=== PATIENT | female | born 1950 | race Caucasian/White ===

== ENCOUNTER → 2016-12-04 | Outpatient (CLI) | payer OTHER ==
[~2016-12-04] MED LIST: (NONE)300 MCG PO; BACLOFEN10 MG PO; CALCIUM 500 +1 EAC5 PO; EC-NAPROSYN500 MG PO; ESCITALOPRAM OX10 MG PO; LEVOTHYROXINE75 MC1 PO; NATURAL VITA400 UNI3 PO; OMEPRAZOLE20 M1 PO; PERCOCET5/325 PO; PRENATA CHEWAB1 EAC1 PO; TOPROL XL50 MG PO; TRIAMTERENE-HC1 EACH PO; XARELTO10 MG PO
--- NOTE | ~2016-12-04 | EKG ---
PATIENT: CECILIO FARFAN UNIT #: [id number] Ventricular Rate: 56 BPM Atrial Rate: 56 BPM P-R Interval: 166 ms QRS Duration: 84 ms Q-T Interval: 442 ms QTC Calculation(Bezet): 426 ms P Zanoni: 26 degrees Calculated R Zanoni: 13 degrees Calculated T Zanoni: 3 degrees Diagnosis Line: Sinus bradycardia Diagnosis Line: Nonspecific T wave abnormality Diagnosis Line: Abnormal ECG Diagnosis Line: No previous ECGs available Diagnosis Line: Confirmed by ENRIQUETA RODRÍGUEZ MD ([id number]) on Diagnosis Line: 12/05/2016 8:47:31 AM INTERPRETING MD: MARCOS GU
[2016-12-04 12:42] LABS: BUN/CREATININE RATIO 25.55; CALCIUM SERUM 9.5 mg/dL (8.4-10.2); CREATININE SERUM 0.9 mg/dL (0.6-1.4); GLOM FILT RATE Estimated 66.7 mL/min (>60); POTASSIUM 4.3 mmol/L (3.5-5.1)
== END | disposition home or self-care (01) ==
LOC: CAMB 10:27
PROVIDERS: Orthopaedic Surgery
DX: Z01.818 Encounter for other preprocedural examination (principal); M19.071 Primary osteoarthritis, right ankle and foot
CPT/HCPCS: 36415; 80048; 93005

== ENCOUNTER 2016-12-18 09:20 | Inpatient (IN) | payer OTHER ==
--- NOTE | ~2016-12-18 | CR72 ---
[facility] A Service of [facility] & [facility] RADIOLOGY TEXT RESULTS PATIENT: CECILIO FARFAN LOCATION: C4B 450-01 : 50 UNIT #: [id number] AGE: [address]: Tori Munson MD SEX: F ORDER DR: [id number] [facility] [address] [place], [place] [address] [id number] I MR#: [id number] Acc #: [id number] NAME: CECILIO FARFAN : 1950 SEX: F STUDY DATE/TIME: 12/19/2016 UNIT: C4B ROOM: 450 STUDY DESCRIPTION: CR Chest Single View Portable Attending Physician: Rudolph Munson M.D. Referring Physician: Rudolph Munson M.D. Ordering Physician: Ambar Lowry M.D. Primary Care Physician: Carl Roy M.D. MEDICAL IMAGING REPORT This report is preliminary unless electronic signature is present EXAM Chest portable 12/19/2016 1328 hours. HISTORY 66-year-old woman with cough, status post ankle surgery yesterday. Hyponatremia. COMPARISON None FINDINGS Single portable view is lordotic in positioning. Allowing for this, the heart size is normal. The aorta is mildly tortuous. There is a small hiatal hernia. The lungs are clear, and there are no effusions. IMPRESSION Film is limited by the lordotic positioning. The lungs are clear, and there are no effusions. Small hiatal hernia seen. Dictated by... Sommer Gordon M.D. THIS IS AN ELECTRONICALLY VERIFIED REPORT Sommer Gordon M.D. at 12/19/2016 5:50 PM DARELL/ramon TD: 12/19/2016 15:53 JOB #: [id number] MEDICAL IMAGING REPORT Page 1 of 1 COPY
--- NOTE | ~2016-12-18 | OR ---
Unit #: [id number] #: [id number] Patient: CECILIO FARFAN [id number] [address] [place], [place] [address] [id number] I MR#: [id number] NAME: CECILIO FARFAN ROOM: [facility] Date of Procedure: 12/18/2016 Admission Date: 12/18/2016 Surgeon: Rudolph Munson M.D. : 1950 Attending Physician: Rudolph Munson M.D. Referring Physician: Rudolph Munson M.D. Primary Care Physician: Carl Roy M.D. OPERATIVE REPORT PREOPERATIVE DIAGNOSES 1. Right ankle arthritis. 2. Right ankle malunion. 3. Right ankle retained hardware. POSTOPERATIVE DIAGNOSES 1. Right ankle posttraumatic arthritis. 2. Right ankle malunion. 3. Right syndesmotic instability. 4. Right ankle retained hardware. PROCEDURES PERFORMED 1. Right ankle fusion (64339). 2. Right tibiofibular syndesmotic fusion (67170). 3. Right medial cuneiform dorsal opening wedge osteotomy (Cotton procedure) (30125). 4. Right ankle hardware removal (78154). BROADCAST OPERATIONS DIRECTOR 1. MD Lucie. 2. SUBHASH Yousif. ANESTHESIA Popliteal saphenous block and general. INDICATIONS FOR SURGERY The patient is a 66-year-old female, who sustained a right ankle trimalleolar fracture, which was treated in [place] with open reduction and internal fixation 1 year ago. The patient now has a malunion of the ankle with a medial malleolar nonunion and widening of the syndesmosis. She has marked ankle valgus measuring 40 degrees with forefoot abduction. The patient has posttraumatic arthritis of the ankle. She has failed bracing and is now to undergo ankle fusion with removal of hardware. DESCRIPTION OF PROCEDURE The patient was taken to the operating room following the right popliteal saphenous block. She was placed in supine position. General anesthetic was induced. The right ankle and leg were identified as the correct operative location. The right foot was then prepped and draped in the usual sterile fashion. The leg was exsanguinated and the thigh tourniquet inflated to 300 mmHg. A lateral longitudinal incision was made over the Unit #: [id number] #: [id number] Patient: CECILIO FARFAN fibula, measuring 10 cm through the old longitudinal scar. The subcutaneous tissue was divided. The fibular plate and screws were identified and removed with a hex head and star screwdrivers. The plate was removed. The fibula was exposed subperiosteally. The microsagittal saw was used to cut the fibula 8 cm proximal to the tibiotalar joint. The fibula was then retracted distally, and the distal tibia was exposed subperiosteally. The ankle joint was distracted. The power osteotome, curved curettes, and rongeurs were utilized to remove the articular cartilage from both sides of the tibiotalar joint. A 5 cm anteromedial longitudinal incision was made over the ankle joint, subcutaneous tissue was divided, dissection proceeded medial to the anterior tibial tendon. The joint was opened and the articular cartilage on the medial half of the joint was removed with the power osteotome and rongeurs. All the scar tissue in the widened tibiotalar joint medially was removed. There was a malunion of the medial malleolus, which had healed laterally. Therefore, the microsagittal saw was used to cut the medial malleolus and the medial malleolus was eventually removed in a piecemeal fashion to be utilized for bone graft later in the case. The underlying subchondral bone was then feathered with the power osteotome. 3 mL of Augment platelet-derived growth factor was then placed in the tibiotalar joint. The joint was then reduced and pinned provisionally. Intraoperative C-arm fluoroscopy documented satisfactory position of the tibiofibular joint. The joint was then fixated with three OrthoHelix 7.0 mm diameter cannulated screws. Two screws were placed from proximal medial to distal lateral. A third screw was placed from proximal lateral to distal medial and excellent fixation was achieved. The fibula was then replaced and because it was healed in a shortened position, a laminar gypsum block setter was used to push it distally so that it was reduced against the talus. The fibula was then repaired to the talus and the syndesmosis was repaired using three 4.0 mm diameter OrthoHelix cannulated screws placed from lateral to medial. One screw was placed from the fibula into the talus and two screws were placed from the fibula into the distal tibia. It should be noted that the syndesmosis was cleared of all soft tissue and was feathered with the power osteotome to encourage fusion between the fibula and the tibia. Following fixation, intraoperative C-arm fluoroscopy documented satisfactory position of hardware and the ankle joint. The forefoot rested in 10 degrees of varus, therefore a forefoot procedure was required. A dorsal longitudinal incision was made over the medial cuneiform. Subcutaneous tissue was divided. The extensor hallucis longus tendon was retracted. A 0.062-inch diameter smooth K-wire was then drilled from dorsal to plantar in a center-center position in the medial cuneiform. This K-wire was used as a guide to make an osteotomy in the medial cuneiform from dorsal to plantar. The osteotomy was then widened dorsally and a [employer] allograft bone wedge measuring 6 mm was impacted into place. This then corrected the forefoot varus. The medial cuneiform osteotomy was fixated with an OrthoHelix 4.0 mm diameter screw placed from dorsal distal to plantar proximal. Intraoperative C-arm fluoroscopy documented satisfactory screw position. The tourniquet was released with a total tourniquet time of 2 hours 10 minutes. Additional autogenous graft in the medial malleolus was packed into the syndesmotic fusion site. Bleeding was controlled with electrocautery. The deep tissues were closed with 2-0 Vicryl, subcutaneous tissue was closed with 3-0 Vicryl, and the skin was closed with 3-0 nylon horizontal mattress sutures. Xeroform Unit #: [id number] #: [id number] Patient: CECILIO FARFAN gauze, dressing, sponges, Webril, and a posterior fiberglass splint were applied. The patient was then transported to the recovery room in stable condition. ESTIMATED BLOOD LOSS 100 mL. COMPLICATIONS None. SPECIMENS Aerobic and anaerobic culture and sensitivity, tibiotalar joint. TOURNIQUET TIME 2 hours 10 minutes. Dictated byAllegra Calderon/rob TD: 12/19/2016 06:06 JOB #: [id number] OPERATIVE REPORT Page 1 of 1 X Tori Munson MD PROCEDURE OPERATIVE NOTE
--- NOTE | ~2016-12-18 | CO ---
Unit #: [id number] #: [id number] Patient: CECILIO FARFAN [id number] [address] [address] [id number] I MR#: [id number] NAME: CECILIO FARFAN ROOM: 450 Age: Sex: F Admission Date: 12/18/2016 : 1950 Attending Physician: Rudolph Munson M.D. Primary Care Physician: Carl Roy M.D. Requesting Physician: Rudolph Munson M.D. Consultation Date: 12/19/2016 CONSULTATION REPORT REASON FOR CONSULTATION Hyponatremia. HISTORY OF PRESENT ILLNESS The patient is a 66-year-old female with a past medical history of hypertension, hypothyroidism, allergic rhinitis who was admitted by Dr. Munson for right ankle surgery. The patient states that she has been having issues with her right lower extremity for a couple of years. She states that she had a stress fracture involving the fibula about two years ago. That healed and then she fell and fractured the right tibia. That apparently healed as well. She then fell in the shower about a year ago, sustaining a trimalleolar right ankle fracture. She underwent surgery in [place] in November 2015. She states that she has had persistent pain involving the right ankle. She had been wearing a brace but then developed an area of ulceration involving the foot and so she stopped wearing the brace. She was seen by Dr. Munson who recommended surgery, which was done yesterday. Regarding the patient's chronic medical condition she has high blood pressure for which she takes Toprol XL and triamterene/HCTZ. She states that none of these are new medications and she has been taking her medications as prescribed. She also has hypothyroidism and takes levothyroxine. She denies any fever, no cough or cold symptoms. No chest pain. No trouble breathing. No urinary symptoms. She did have some loose stool last week but that has resolved. HIPS was consulted for hyponatremia and patient's sodium was 130 today. She is currently on day 5 of lactated Ringers at 80 mL an hour. Sodium on 12/04/2016 was 137. The patient denies ever being told that she has low sodium. PAST MEDICAL HISTORY 1. Admission to [facility] in 2014 for a mass involving the appendix. She states that it was some type of malignancy. She had an appendectomy but no radiation or chemotherapy. She followed up with [facility] one time and has since been released. 2. Hypertension. 3. Hypothyroidism. 4. Allergic rhinitis. PAST SURGICAL HISTORY 1. Right ankle surgery. 2. Hysterectomy. Unit #: [id number] #: [id number] Patient: CECILIO FARFAN 3. C. section. 4. Appendectomy. SOCIAL HISTORY The patient lives with her . Dictated by... Ambar Lowry M.D. Harry TD: 12/19/2016 12:26 JOB #: [id number] ADDENDUM SOCIAL HISTORY The patient lives with her . She does not smoker or drink. 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 She walks with a cane and has used a wheelchair intermittently. FAMILY HISTORY Notable for both parents having hypertension and they were recently diagnosed with diabetes. ALLERGIES Salsa. HOME MEDICATIONS Levothyroxine, escitalopram, Toprol XL, triamterene/HCTZ, omeprazole, calcium plus D, naproxen, vitamin E, biotin, vitamin, baclofen. REVIEW OF SYSTEMS A complete review of systems is negative except as indicated in the HPI. The patient states that she did have loose stool last week but that has resolved. PHYSICAL EXAMINATION VITAL SIGNS: Temperature is 98.4, pulse 73, respiration 18, blood pressure 120/58, oxygen saturation is 95%. GENERAL: The patient is a very pleasant female who is awake and alert in no acute distress. HEENT: Head is atraumatic. Mucous membranes are moist. NECK: Supple. Trachea is midline. CARDIOVASCULAR: Regular rate and rhythm. LUNGS: Clear to auscultation bilaterally with no increased work of breathing. ABDOMEN: Soft, nontender, with bowel sounds present in all four quadrants. EXTREMITIES: There is an Eleazar bandage about the right ankle that is clean, dry and intact. There is no pedal edema involving the left ankle. NEUROLOGIC: The patient is awake and alert. She followed commands. Unit #: [id number] #: [id number] Patient: CECILIO FARFAN PSYCH: Mood and affect are normal. The patient is cooperative. SKIN: Skin of examined areas is warm and dry. DIAGNOSTIC STUDIES CARDIOLOGY STUDIES: EKG from 12/04/2016 shows sinus bradycardia with a rate of 56 BPM. LABORATORY DATA: H and H from today shows hemoglobin of 11.6, hematocrit 35.3, BMP from today shows sodium of 130, glucose 121, calcium 7.8. There is no albumin. ASSESSMENT The patient is a 66-year-old female with: 1. Status post right ankle surgery. 2. Hyponatremia. The patient's sodium was 137 on 12/04/2016. It is 130 today. She maybe slightly volume depleted due to recent surgery and decreased p.o. intake. She is on escitalopram, as well as hydrochlorothiazide, which could be contributing as well. 3. Anemia. The patient's hemoglobin is 11.6 today with no baseline for comparison. 4. Hypertension. 5. Hypothyroidism. 6. Increased risk of obstructive sleep apnea. PLAN 1. Regarding hyponatremia, I have ordered urine sodium and osmolality, as well as serum osmolality. 2. Additionally I have ordered a chest x-ray. I have also changed IV fluids to normal saline at 75 mL an hour. Will also check urinalysis. I have ordered to hold hydrochlorothiazide and escitalopram, which may be contributing. Will repeat labs in the morning. 3. Regarding hypothyroidism, I have ordered a TSH. 4. Regarding increased risk of obstructive sleep apnea, I have ordered the sleep apnea protocol. Thank you very much for the consultation. We will follow the patient along closely with you. Dictated by... Ambar Lowry M.D. JOVITA/karlee TD: 12/19/2016 12:46 JOB #: [id number] Unit #: [id number] #: [id number] Patient: CECILIO FARFAN CONSULTATION REPORT Page 1 of 1 X Ambar Lowry MD X CONSULTATION REPORT
--- NOTE | ~2016-12-18 | HP ---
Unit #: [id number] #: [id number] Patient: CECILIO FARFAN [id number] [address] [place], [place] [address] [id number] MR#: [id number] NAME: CECILIO FARFAN ROOM: Age: 66 Sex: F Admission Date: 12/18/2016 : 1950 Attending Physician: Rudolph Munson M.D. Referring Physician: Rudolph Munson M.D. Primary Care Physician: Carl Roy M.D. HISTORY AND PHYSICAL CHIEF COMPLAINT Right ankle pain. HISTORY OF PRESENT ILLNESS This 66-year-old female fell in her shower one year ago, sustaining a trimalleolar right ankle fracture. She was treated by an orthopedic surgeon in [place] in 11/2015. The patient was nonweightbearing for several months and then started walking again. She developed a progressive deformity of the ankle. Subsequent radiographs now show a fracture above the level of the fibular plate with subluxation of the tibia and lateral migration of the medial malleolus. She has a nonunion of the medial malleolus and of the anterolateral distal tibia. She has significant lateral subluxation of the talus. This is suspicious for a neuropathic process following the fracture but she denied diabetes or peripheral neuropathy. She states that she does have a normal feeling in her right ankle. She has been wearing a supramalleolar hinged ankle foot arthrosis and has had some pain with superficial ulceration over the medial malleolus. The patient is therefore admitted for hardware removal and fusion of the ankle. PAST MEDICAL HISTORY Remarkable for hypothyroidism, hypertension, allergic rhinitis. HOME MEDICATIONS Although the patient states that she is nondiabetic she lists metformin as one of her medications. Calcium, citalopram, levothyroxine, naproxen and triamterene. PAST SURGICAL HISTORY Right ankle open reduction internal fixation, hysterectomy, C. section, and appendectomy. SOCIAL HISTORY The patient is a nonsmoker. She is a nondrinker. FAMILY HISTORY Arthritis. REVIEW OF SYSTEMS Unremarkable. PHYSICAL EXAMINATION VITAL SIGNS: Height 5'1", weight 185 pounds, BMI 34. GENERAL: This is an obese female in no acute distress. Unit #: [id number] #: [id number] Patient: CECILIO FARFAN HEENT: Pharynx is clear. NECK: Supple without masses. HEART: Heart exam reveals a regular sinus rhythm without murmurs, or gallops. LUNGS: Clear. ABDOMEN: Soft and nontender. EXTREMITIES: Examination of the right foot shows flattening of the arch with 30 degrees of hind foot valgus. She has marked forefoot abduction. Right ankle dorsiflexion and 10 degree plantar flexion 40 degree. Subtalar motion is normal. First MTP joint motion is normal. The patient has a well healed medial and lateral longitudinal incisions over the malleoli. She has point tenderness and the sinus tarsi pulses are 1+/2. Sensation is intact. Motor exam is grossly normal. DIAGNOSTIC STUDIES IMAGING STUDIES: Standing x-rays of the right ankle showed 28 degrees of tibial talar valgus with erosion of the superior lateral tibial plafond. There is lateral migration of the medial malleolus of nonunion. The syndesmosis is widened. It is apparent that the fibula has fractured above the level of the plate, but the plate itself is intact. Standing x-rays of the right foot show a lateral talar first metatarsal angle of -41 degrees, calcaneal pitch of 15 degrees and medial cuneiform height of -6 mm. The talonavicular joint is surprisingly completely covered. I did a stress view of the ankle while inverting and correcting the tibiotalar valgus and alignment of the subtalar joint appeared to normalize. ADMITTING DIAGNOSIS 1. Post traumatic right ankle valgus and degenerative arthritis. 2. Right syndesmotic instability. 3. Retained right ankle hardware. 4. Short fibular right foot. PLAN I would recommend removal of the fibular plate and all hardware, followed by fibular osteotomy and reconstruction of the syndesmosis. Fusion of the ankle will be performed with cannulated screws and then the fibula would be laid back in place to work as a strut graft. This procedure was described with a diagram. The risks of the procedure were described to include bleeding, infection, nerve damage, need for further surgery in the future, nonunion, malunion, deep venous thrombosis, pulmonary embolism, prolonged recovery time, persistent swelling, development of arthritis in adjacent joints, persistent deformity. The patient has knee pain, therefore, we cannot use proximal tibial graft and would therefore recommend we use augment platelet thrived growth factor. Dictated by Allegra Yanes/karlee TD: 12/18/2016 05:12 JOB #: [id number] Unit #: [id number] #: [id number] Patient: CECILIO FARFAN HISTORY AND PHYSICAL Page 1 of 1 X Tori Munson MD X HISTORY AND PHYSICAL
--- NOTE | ~2016-12-18 | DS ---
Unit #: [id number] #: [id number] Patient: CECILIO FARFAN [id number] [address] [place], [place] [address] [id number] I MR#: [id number] NAME: CECILIO FARFAN ROOM: 450 Age: 66 Sex: F Admission Date: 12/18/2016 : 1950 Discharge Date: 12/20/2016 Attending Physician: Rudolph Munson M.D. Referring Physician: Rudolph Munson M.D. Primary Care Physician: Carl Roy M.D. DISCHARGE SUMMARY CHIEF COMPLAINT Right ankle pain. HISTORY OF PRESENT ILLNESS The patient is a 66-year-old female who sustained a right ankle trimalleolar fracture which was treated with open reduction internal fixation one year ago. She has now developed a malunion of the ankle with a medial malleolar nonunion and widening of the syndesmosis. She has marked ankle valgus measuring 40 degrees. The patient now has posttraumatic arthritis and significant deformity which has been unresponsive to conservative care. She is admitted for right ankle fusion. HOSPITAL COURSE The patient was taken to the operating room on the date of admission where she underwent right ankle hardware removal, right ankle fusion, right ankle syndesmotic fusion and Cotton procedure. The patient had no complications. She had a stable postoperative course. She did have a low sodium of 125 on the first postoperative day. Internal Medicine Service was consulted and her IV fluids were adjusted. Dressing was changed on the second postoperative day. Wounds were healing appropriately. She remained afebrile with stable vital signs. Hematocrit was 34.7% on second postoperative day. Sodium was 135 at that point. She was ready for discharge on the second postoperative day. FINAL DIAGNOSIS Right ankle posttraumatic arthritis. DISPOSITION AND RECOMMENDATIONS 1. The patient is discharged home. She will remain nonweightbearing for total of three months. She will keep the dressing clean, dry and intact and will continue ice and elevation of the right leg. 2. Discharge medications remain the same as her home medications with the addition of Percocet 5/325 mg one or two p.o. q.4-6 hours p.r.n. pain and Xarelto 10 mg p.o. daily for 12 days. 3. Followup in my office in two weeks for dressing change, suture removal and application of a cast. Dictated byAllegra Calderon/danny Unit #: [id number] #: [id number] Patient: CECILIO FARFAN TD: 12/20/2016 08:41 JOB #: [id number] DISCHARGE SUMMARY Page 1 of 1 X Tori Munson MD X DISCHARGE SUMMARY
[~2016-12-18 09:20] MED LIST changes: -PERCOCET5/325 PO; -XARELTO10 MG PO
[2016-12-19 03:30] LABS: HEMATOCRIT 35.3 % (35.0-45.0); HEMOGLOBIN 11.6 gm/dL (12.0-16.0)
[2016-12-19 03:52] LABS: BUN/CREATININE RATIO 22.5; CALCIUM SERUM 7.8 mg/dL (8.4-10.2); CREATININE SERUM 0.8 mg/dL (0.6-1.4); GLOM FILT RATE Estimated 76.9 mL/min (>60); POTASSIUM 3.9 mmol/L (3.5-5.1)
[2016-12-19 13:27] LABS: URINE SOURCE CLEAN CATCH
[2016-12-19 13:42] LABS: URINE APPEARANCE CLEAR; URINE BILIRUBIN NEG (NEG); URINE BLOOD NEG (NEG); URINE COLOR YELLOW; URINE GLUCOSE NEG (NEG); URINE KETONE NEG (NEG); URINE LEUKOCYTE ESTERASE 2+ (NEG); URINE NITRATE NEG (NEG); URINE PROTEIN NEG (NEG); URINE SPECIFIC GRAVITY 1.008 (1.003-1.035); URINE UROBILINOGEN 0.2 MG/DL (NEG)
[2016-12-19 13:43] LABS: CULTURE INDICATED? YES; U HYALINE CASTS AUWI 0-2 /[LPF]; URBCS1 AUWI 0-2 /[HPF] (0-2); URINE BACTERIA AUWI NEG (NEGATIVE); URINE SQUAMOUS EPITHELIAL CELL OCC /[HPF]
[2016-12-19 13:52] LABS: SODIUM URINE RANDOM 78 mmol/L
[2016-12-19 14:14] LABS: OSMOLALITY,URINE 290 mOsmo/kg (250-900)
[2016-12-20 03:51] LABS: HEMATOCRIT 34.7 % (35.0-45.0); HEMOGLOBIN 11.6 gm/dL (12.0-16.0)
[2016-12-20 03:51] LABS: HEMATOCRIT 37.5 % (35.0-45.0); HEMOGLOBIN 12.3 gm/dL (12.0-16.0); MEAN CELL VOLUME 95.2 FL (83-96); MEAN CORPUSCULAR HEMOGLOBIN 31.2 PG (28-34); MEAN CORPUSCULAR HGB CONC 32.7 g/dL (30-36); MEAN PLATELET VOLUME 8.4 FL (6.5-11.5); RED BLOOD COUNT 3.94 X10e (3.90-5.30); RED CELL DISTRIBUTION WIDTH 13.1 % (11.0-15.5); WHITE BLOOD COUNT 9.4 X10e3 (4.0-10.5)
[2016-12-20 04:16] LABS: ALBUMIN SERUM 3.1 g/dL (3.5-5.0); BILIRUBIN,TOTAL 0.9 mg/dL (0.2-2.0); BUN/CREATININE RATIO 12.22; CALCIUM SERUM 8.6 mg/dL (8.4-10.2); CREATININE SERUM 0.9 mg/dL (0.6-1.4); GLOM FILT RATE Estimated 66.7 mL/min (>60); POTASSIUM 3.5 mmol/L (3.5-5.1); PROTEIN TOTAL SERUM 6.5 g/dL (6.0-8.3)
[2016-12-20] MEDS ORDERED: XARELTO10 MG PO (12:54)
[2016-12-20] MEDS ORDERED: PERCOCET5/325 PO (12:55)
== END 2016-12-20 13:26 | disposition home or self-care (01) | DRG 493 ==
LOC: CSUR 09:20 → CPACUOF 10:42 → CSUR 10:42 → C4B 14:15 → CPACUOF 14:15 → C4B 16:15
PROVIDERS: Family Medicine; Orthopaedic Surgery
PROC: 0QSL04Z Reposition Right Tarsal with Internal Fixation Device, Open Approach (ICD-10-PCS; 2016-12-18)
PROC: 0QR Lower Bones, Replacement (ICD-10-PCS; 2016-12-18)
PROC: 0QBJ0ZZ Excision of Right Fibula, Open Approach (ICD-10-PCS; 2016-12-18)
PROC: 0SGF04Z Fusion of Right Ankle Joint with Internal Fixation Device, Open Approach (ICD-10-PCS; principal; 2016-12-18 11:30)
PROC: 0SPF04Z Removal of Internal Fixation Device from Right Ankle Joint, Open Approach (ICD-10-PCS; 2016-12-18 11:30)
DX: M19.171 Post-traumatic osteoarthritis, right ankle and foot (principal); M96.0 Pseudarthrosis after fusion or arthrodesis; E87.1 Hypo-osmolality and hyponatremia; I10 Essential (primary) hypertension; M21.071 Valgus deformity, not elsewhere classified, right ankle; Y83.8 Other surgical procedures as the cause of abnormal reaction of the patient, or of later complication, without mention of misadventure at the time of the procedure; Y79.8 Miscellaneous orthopedic devices associated with adverse incidents, not elsewhere classified; E03.9 Hypothyroidism, unspecified; J30.9 Allergic rhinitis, unspecified; Z88.2 Allergy status to sulfonamides; D64.9 Anemia, unspecified; F32.9 Major depressive disorder, single episode, unspecified
CPT/HCPCS: 71010; 80048; 80053; 81003; 82947; 83930; 83935; 84300; 84443; 85014; 85018; 85027; 87070; 87075; 87086; 87205; 94760; 94761; 94762; 97161; C1713; G8978-GP; G8979-GP; G8980-GP; J0330; J0690; J1170; J2250; J2270; J2405; J2710; J2795; J3010; J3370